=== PATIENT | female | born 1945 | race Caucasian/White ===

== ENCOUNTER 2016-11-01 00:44 | Inpatient (IN) | payer MEDICARE, OTHER ==
[~2016-11-01] VITALS: Ht 167.6 cm; Wt 105.8 kg
[2016-11-01] MEDS ORDERED: ANTIVERT 12.512.5 MG PO (01:30)
[2016-11-01] MEDS ORDERED: DIOVAN 80 MG TA80 MG PO (01:30)
[2016-11-01] MEDS ORDERED: SENNA8.6 MG PO (01:30)
[2016-11-01] MEDS ORDERED: ATIVAN 1MG TABLE1 MG PO (01:31)
[2016-11-01] MEDS ORDERED: PREDNISONE 5 MG5 MG PO (01:31)
[2016-11-01] MEDS ORDERED: NORVASC 5 MG TAB5 MG PO ×2 (01:32→01:36)
[2016-11-01] MEDS ORDERED: NORCO 7.5-3251 EACH PO (01:33)
[2016-11-01] MEDS ORDERED: CONSTULOSE10 GM/15 M PO (01:33)
[2016-11-01] MEDS ORDERED: AMITIZA24 MCG PO (01:34)
[2016-11-01] MEDS ORDERED: ALPRAZOLAM0.5 MG PO (01:34)
[2016-11-01] MEDS ORDERED: NEURONTIN 100100 MG PO (01:34)
[2016-11-01] MEDS ORDERED: LEVEMIR100 UNIT/1 SQ (01:35)
[2016-11-01] MEDS ORDERED: ISOSORBIDE MONO60 MG PO (01:36)
[2016-11-01] MEDS ORDERED: CRESTOR10 MG PO (01:37)
[2016-11-01] MEDS ORDERED: ENALAPRIL MALEAT5 MG PO (01:37)
[2016-11-01] MEDS ORDERED: ASPIR 8181 MG PO (01:38)
[2016-11-01] MEDS ORDERED: NOVOLOG 10100 UNITS/ INJ (01:38)
[2016-11-01] MEDS ORDERED: RANEXA1000 MG PO (01:39)
[2016-11-01] MEDS ORDERED: DALIRESP 500500 MCG PO (01:39)
[2016-11-01] MEDS ORDERED: POTASSIUM CHLO20 ME1 PO (01:40)
[2016-11-01] MEDS ORDERED: HUMULIN R SQ (01:41)
[2016-11-01] MEDS ORDERED: CITALOPRAM HBR20 MG PO (02:21)
[2016-11-01] MEDS ORDERED: DUONEB (02:22)
[2016-11-01 06:57] LABS: HEMOGLOBIN 10.7 gm/dl (12.3-15.3); RED BLOOD COUNT 3.65 M/UL (4.00-5.10); WHITE BLOOD COUNT 4.3 K/UL (4.5-11.0)
[2016-11-01 17:19] LABS: HEMOGLOBIN 10.3 gm/dl (12.3-15.3); RED BLOOD COUNT 3.48 M/UL (4.00-5.10)
[2016-11-01 17:32] LABS: WHITE BLOOD COUNT 5.4 K/UL (4.5-11.0)
[2016-11-02 06:19] LABS: HEMOGLOBIN 10.3 gm/dl (12.3-15.3); RED BLOOD COUNT 3.45 M/UL (4.00-5.10)
[2016-11-02 06:50] LABS: WHITE BLOOD COUNT 3.5 K/UL (4.5-11.0)
[2016-11-03 06:56] LABS: HEMOGLOBIN 9.8 gm/dl (12.3-15.3); RED BLOOD COUNT 3.36 M/UL (4.00-5.10); WHITE BLOOD COUNT 3.3 K/UL (4.5-11.0)
[2016-11-04 06:17] LABS: HEMOGLOBIN 9.7 gm/dl (12.3-15.3); RED BLOOD COUNT 3.31 M/UL (4.00-5.10)
[2016-11-04 06:31] LABS: BUN/CREATININE RATIO 14 (0-10)
[2016-11-05 05:59] LABS: HEMOGLOBIN 9.9 gm/dl (12.3-15.3); RED BLOOD COUNT 3.35 M/UL (4.00-5.10); WHITE BLOOD COUNT 3.9 K/UL (4.5-11.0)
== END 2016-11-05 19:50 | DRG 643 ==
LOC: MED SURG 4 00:44
PROVIDERS: Emergency Medicine; Internal Medicine; Physician Assistant Medical; ADMIT Internal Medicine
DX: E21.3 Hyperparathyroidism, unspecified (principal); G93.41 Metabolic encephalopathy; J44.1 Chronic obstructive pulmonary disease with (acute) exacerbation; D61.818 Other pancytopenia; D35.1 Benign neoplasm of parathyroid gland; R53.1 Weakness; K59.00 Constipation, unspecified; R06.00 Dyspnea, unspecified; E87.70 Fluid overload, unspecified; E66.01 Morbid (severe) obesity due to excess calories; I51.89 Other ill-defined heart diseases; I10 Essential (primary) hypertension; E11.9 Type 2 diabetes mellitus without complications; Z74.01 Bed confinement status; K76.0 Fatty (change of) liver, not elsewhere classified; D69.6 Thrombocytopenia, unspecified; E78.5 Hyperlipidemia, unspecified; I25.10 Atherosclerotic heart disease of native coronary artery without angina pectoris; Z68.37 Body mass index [BMI] 37.0-37.9, adult; Z87.891 Personal history of nicotine dependence; Z85.820 Personal history of malignant melanoma of skin; Z86.73 Personal history of transient ischemic attack (TIA), and cerebral infarction without residual deficits; Z88.1 Allergy status to other antibiotic agents; Z79.4 Long term (current) use of insulin; Z79.891 Long term (current) use of opiate analgesic; Z79.52 Long term (current) use of systemic steroids; Z79.899 Other long term (current) drug therapy
CPT/HCPCS: 36415; 71010; 76705; 80048; 80053; 82330; 82397; 82607; 82652; 82746; 82962; 83036; 83615; 83735; 83880; 83883; 83921; 83970; 84100; 84166; 85027; 86334; 94640; 94664; G0378; G0379; J1650; J1940; J3489; J7030; J7050